=== PATIENT | female | born 1950 | race African-American/Black ===

== ENCOUNTER 2020-09-06 07:05 | Emergency (ER) | payer MEDICARE ==
[~2020-09-06] VITALS: Ht 180.3 cm; Wt 91.0 kg
[2020-09-06 08:19] VITALS: BP 151/80
--- NOTE | 2020-09-06 08:41 | NUR ---
REPORT GIVEN TO DAVID CARTY
== END 2020-09-06 09:38 | disposition home or self-care (01) ==
LOC: ED 09:03
DX: S39.011A Strain of muscle, fascia and tendon of abdomen, initial encounter (principal); R10.30 Lower abdominal pain, unspecified; X58.XXXA Exposure to other specified factors, initial encounter; Y93.89 Activity, other specified; Y92.89 Other specified places as the place of occurrence of the external cause; Y99.8 Other external cause status
CPT/HCPCS: 74176; 99284

== ENCOUNTER 2020-10-06 10:36 | Outpatient (CLI) | payer MEDICARE | END 2020-10-06 23:59 | disposition home or self-care (01) | LOC: CFH 10:36 → EDSTATUS 10:45 → CFH 23:59 | PROVIDERS: ATTEND Urology | DX: N20.0 Calculus of kidney (principal) | CPT/HCPCS: 76770 ==

== ENCOUNTER 2020-11-02 04:47 | Emergency (ER) | payer MEDICARE ==
[~2020-11-02] VITALS: Ht 180.3 cm; Wt 91.8 kg
[2020-11-02 04:49] VITALS: BP 176/104
--- NOTE | 2020-11-02 05:25 | NUR ---
Patient denies the need for COVID swab.
--- NOTE | 2020-11-02 05:29 | NUR ---
Discharge instructions given. All questions and concerns addressed. Patient ambulatory with a steady gait. Belongings with patient.
== END 2020-11-02 05:31 | disposition home or self-care (01) ==
LOC: ED 05:20
DX: S16.1XXA Strain of muscle, fascia and tendon at neck level, initial encounter (principal); Z87.891 Personal history of nicotine dependence; X58.XXXA Exposure to other specified factors, initial encounter; Y93.89 Activity, other specified; Y92.89 Other specified places as the place of occurrence of the external cause; Y99.8 Other external cause status
CPT/HCPCS: 99283